=== PATIENT | female | born 1975 | race Caucasian/White ===

== ENCOUNTER → 2022-04-03 | Outpatient (CLI) | payer OTHER ==
[~2022-04-03] MED LIST: BIOTIN PO; BUPRENORPHIN-N1 EACH SL; HYDROCHLOROTH12.5 MG PO; LABETALOL HCL200 MG PO; LASIX20 MG PO; MIRALAX 119 GR119 GM PO; MIRTAZAPINE30 MG PO; NEURONTIN800 MG PO; OMEPRAZOLE40 MG PO; VENLAFAXINE HC150 M1 PO; VIIBRYD40 MG PO; VISTARIL 25 MG25 MG PO
[2022-04-03 11:23] LABS: HEMOGLOBIN 13.5 gm/dl (12.3-15.3); RED BLOOD COUNT 4.43 M/UL (4.00-5.10); WHITE BLOOD COUNT 5.9 K/UL (4.5-11.0)
[2022-04-03 11:45] LABS: BUN/CREATININE RATIO 12 (0-10)
== END ==
LOC: OPSV2 10:00
PROVIDERS: Obstetrics & Gynecology
DX: Z01.812 Encounter for preprocedural laboratory examination (principal)
CPT/HCPCS: 80048; 81001; 85025

== ENCOUNTER → 2022-04-12 | Day surgery (SDC) | payer OTHER ==
[~2022-04-12] MED LIST changes: +NAPROXEN 375 M375 MG PO
== END | disposition home or self-care (01) ==
LOC: OR 07:30
DX: N99.3 Prolapse of vaginal vault after hysterectomy (principal); N39.41 Urge incontinence; I10 Essential (primary) hypertension; E78.5 Hyperlipidemia, unspecified; K21.9 Gastro-esophageal reflux disease without esophagitis; F17.210 Nicotine dependence, cigarettes, uncomplicated; F41.9 Anxiety disorder, unspecified; F32.A Depression, unspecified; F41.0 Panic disorder [episodic paroxysmal anxiety]; Z88.5 Allergy status to narcotic agent; Z79.899 Other long term (current) drug therapy
CPT/HCPCS: J0690; J1100; J1170; J1885; J2001; J2250; J2405; J2704; J2795; J3010